=== PATIENT | female | born 1955 | race Caucasian/White ===

== ENCOUNTER 2017-09-27 08:48 | Inpatient (IN) | payer OTHER ==
[2017-09-27] MEDS ORDERED: METOCLOPRAMIDE 10 MG/2 ML VIAL IVP ONE (09:06)
[2017-09-27] MEDS ORDERED: NS 1,000 ML IV ONE (09:10)
[2017-09-27 09:12] LABS: % IMMATURE GRANULYOCYTES 0.2 % (0.0-1.1); ABSOLUTE IMMATURE GRANULOCYTES 0.02 10^3/uL (0.00-0.10); ADD DIFF? NO; ADD MORPH? NO; ADD SCAN? NO; ATYPICAL LYMPHOCYTE FLAG 10 (0-99); FRAGMENT RBC FLAG 0 (0-99); HEMOGLOBIN 16.4 g/dL (12.6-16.3); LEFT SHIFT FLG 0 (0-99); LIPEMIA HEMOLYSIS FLAG 90 (0-99); MEAN CELL HEMOGLOBIN 30.9 pg (27.9-34.1); MEAN CELL HEMOGLOBIN CONCENTR. 34.2 g/dL (32.4-36.7); MEAN CELL VOLUME 90.4 fL (81.5-99.8); MEAN PLATELET VOLUME 9.8 fL (8.7-11.7); PLATELET CLUMPS FLAG 10 (0-99); PLATELET COUNT 252 10^3/uL (150-400); RED BLOOD CELL COUNT 5.31 10^6/uL (4.18-5.33)
--- NOTE | 2017-09-27 09:13 | EDPHY ---
H & P Time Seen by Provider: 09/27/17 08:54 HPI/ROS: CHIEF COMPLAINT: Severe abdominal pain HISTORY OF PRESENT ILLNESS: 62-year-old female presents with severe abdominal pain. She awoke with epigastric pain this morning. The pain has gradually increased and now is severe. The pain waxes and wanes and is associated with nausea and vomiting. No radiation of pain and no alleviating/aggravating factors. No prior similar symptoms. No prior abdominal surgery. REVIEW OF SYSTEMS: Constitutional: No fever, no chills Eyes: No visual changes ENT: No sore throat Respiratory: No cough, no shortness of breath Cardiac: No chest pain Genitourinary: No hematuria, no dysuria Musculoskeletal: No leg pain or swelling Skin: No rash Neurological: No headache, no weakness Psychiatric: No depression Past Medical/Surgical History: Denies Social History: Occasional alcohol Smoking Status: Never smoked Physical Exam: General Appearance: Alert, appears in pain Eyes: Pupils equal and round, no conjunctival pallor or injection ENT, Mouth: Mucous membranes moist Neck: Normal inspection Respiratory: Lungs are clear to auscultation Cardiovascular: Regular rate and rhythm Gastrointestinal: Abdomen is diffusely tender, guarding Neurological: A&O, nonfocal exam Skin: Warm and dry, no rash Extremities: Nontender, no pedal edema Psychiatric: Mood and affect normal Constitutional: Initial Vital Signs Temperature (C) 36.7 C 09/27/17 08:49 Heart Rate 71 09/27/17 08:49 Respiratory Rate 19 09/27/17 08:49 Blood Pressure 176/113 H 09/27/17 08:49 O2 Sat (%) 100 09/27/17 08:49 O2 Delivery Mode Room Air O2 (L/minute) 2 Allergies/Adverse Reactions: No Known Allergies Allergy (Unverified 09/27/17 08:49) Home Medications: Medication Instructions Recorded PARoxetine HCL [Paxil 30mg (*)] 30 mg PO HS 09/27/17 Medical Decision Making - Diagnostics EKG Interpretation: EKG interpreted by me reveals sinus rhythm, rate 79, no ST or T segment changes. Imaging Results: Imaging Impressions Abdomen CT 09/27/17 09:11 Impression: 1. High-grade small bowel obstruction in the right lower quadrant involving two segments of ileum. Etiology is either due to adhesive band or internal hernia. 2. Small volume of free fluid in the right paracolic gutter and pelvis. No abscess or evidence of perforation. 3. Simple 2.8 cm left ovarian cyst. Recommend follow up pelvic sonogram to optimally characterize. Findings discussed with Emergency Department physician, Monica Ellis, on September 27, 2017 at 11:00 a.m. ED Course/Re-evaluation: This patient presents with severe generalized abdominal pain. Concern for peritonitis, given diffuse tenderness with guarding. Reglan and Benadryl IV given. 9:40 a.m.-feels better after IV medications. Abdomen remains diffusely tender with voluntary guarding. Recurrent pain. Morphine and Zofran IV given. 11:30 a.m.-CT scan results discussed with the patient. She just vomited and the pain is returning. NG tube ordered. Morphine and Zofran IV ordered. Consulted Dr. Virginia Beltrán, who will admit the patient. Differential Diagnosis: Differential diagnosis includes though it is not limited to appendicitis, cholecystitis, diverticulitis, pyelonephritis, bowel perforation, small bowel obstruction. - Data Points Laboratory Results: Laboratory Results 09/27/17 09:05 09/27/17 09:05 09/27/17 09/27/17 09:05 09:05 WBC 8.77 10^3/uL 10^3/uL (3.80-9.50) RBC 5.31 10^6/uL 10^6/uL (4.18-5.33) Hgb 16.4 g/dL H g/dL (12.6-16.3) Hct 48.0 % H % (38.0-47.0) MCV 90.4 fL fL (81.5-99.8) MCH 30.9 pg pg (27.9-34.1) MCHC 34.2 g/dL g/dL (32.4-36.7) RDW 13.0 % % (11.5-15.2) Plt Count 252 10^3/uL 10^3/uL (150-400) MPV 9.8 fL fL (8.7-11.7) Neut % (Auto) 71.9 % % (39.3-74.2) Lymph % (Auto) 20.3 % % (15.0-45.0) [place] % (Auto) 6.5 % % (4.5-13.0) Eos % (Auto) 0.6 % % (0.6-7.6) Baso % (Auto) 0.5 % % (0.3-1.7) Nucleat RBC Rel Count 0.0 % % (0.0-0.2) Absolute Neuts (auto) 6.31 10^3/uL 10^3/uL (1.70-6.50) Absolute Lymphs (auto) 1.78 10^3/uL 10^3/uL (1.00-3.00) Absolute Monos (auto) 0.57 10^3/uL 10^3/uL (0.30-0.80) Absolute Eos (auto) 0.05 10^3/uL 10^3/uL (0.03-0.40) Absolute Basos (auto) 0.04 10^3/uL 10^3/uL (0.02-0.10) Absolute Nucleated RBC 0.00 10^3/uL 10^3/uL (0-0.01) Immature Gran % 0.2 % % (0.0-1.1) Immature Gran # 0.02 10^3/uL 10^3/uL (0.00-0.10) Sodium 138 mEq/L mEq/L (134-144) Potassium 4.0 mEq/L mEq/L (3.5-5.2) Chloride 100 mEq/L mEq/L (97-110) Carbon Dioxide 22 mEq/l mEq/l (22-31) Anion Gap 16 mEq/L mEq/L (8-16) BUN 21 mg/dL mg/dL (7-23) Creatinine 0.7 mg/dL mg/dL (0.6-1.0) Estimated GFR > 60 Glucose 145 mg/dL H mg/dL (70-100) Calcium 9.9 mg/dL mg/dL (8.5-10.4) Total Bilirubin 0.5 mg/dL mg/dL (0.1-1.4) Conjugated Bilirubin 0.0 mg/dL mg/dL (0.0-0.5) Unconjugated Bilirubin 0.5 mg/dL mg/dL (0.0-1.1) AST 30 IU/L IU/L (14-46) ALT 42 IU/L IU/L (9-52) Alkaline Phosphatase 80 IU/L IU/L (38-126) Total Protein 7.1 g/dL g/dL (6.3-8.2) Albumin 4.6 g/dL g/dL (3.5-5.0) Lipase 95 IU/L IU/L (23-300) Medications Given: Hydromorphone HCl (Dilaudid) 0.4 - 1 mg IVP Q4 PRN PRN Reason: Pain, Severe Unable to Take PO Stop: 10/07/17 13:04 Last Admin: 09/27/17 14:30 Dose: 0.4 mg Morphine Sulfate (Morphine) 4 mg IVP Q1H PRN PRN Reason: Pain, Severe Unable to Take PO Last Admin: 09/27/17 11:47 Dose: 4 mg Discontinued Medications Diphenhydramine HCl (Benadryl Injection) 25 mg IVP EDNOW ONE Stop: 09/27/17 09:07 Last Admin: 09/27/17 09:13 Dose: 25 mg Sodium Chloride (Ns) 1,000 mls @ 0 mls/hr IV ONCE ONE; Wide Open PRN Reason: Protocol Stop: 09/27/17 09:11 Last Admin: 09/27/17 09:14 Dose: 1,000 mls Metoclopramide HCl (Reglan Injection) 10 mg IVP EDNOW ONE Stop: 09/27/17 09:07 Last Admin: 09/27/17 09:14 Dose: 10 mg Morphine Sulfate (Morphine) 4 mg IVP EDNOW ONE Stop: 09/27/17 10:02 Last Admin: 09/27/17 10:03 Dose: 4 mg Ondansetron HCl (Zofran) 4 mg IVP EDNOW ONE Stop: 09/27/17 11:29 Last Admin: 09/27/17 11:47 Dose: 4 mg Departure - Departure Disposition: [facility] Acute Clinical Impression: Small bowel obstruction Condition: Good
--- NOTE | 2017-09-27 09:34 | CPEKG ---
Heart Rate: 79 RR Interval: 759 P-R Interval: 140 QRSD Interval: 88 QT Interval: 444 QTC Interval: 510 P [place]: 78 QRS [place]: 86 T Wave [place]: 29 EKG Severity - ABNORMAL ECG - EKG Impression: SINUS RHYTHM EKG Impression: LEFT ATRIAL ABNORMALITY EKG Impression: BORDERLINE RIGHT AXIS DEVIATION EKG Impression: BORDERLINE PROLONGED QT INTERVAL Electronically Signed By: Monica Ellis 27-Sep-2017 15:01:36
[2017-09-27 09:39] LABS: ALANINE AMINOTRANSFERASE 42 IU/L (9-52); ALBUMIN 4.6 g/dL (3.5-5.0); ALKALINE PHOSPHATASE 80 IU/L (38-126); ANION GAP 16 mEq/L (8-16); ASPARTATE AMINOTRANSFERASE 30 IU/L (14-46); BILIRUBIN,TOTAL 0.5 mg/dL (0.1-1.4); BILIRUBIN-UNCONJUGATED 0.5 mg/dL (0.0-1.1); CALCIUM 9.9 mg/dL (8.5-10.4); CARBON DIOXIDE 22 mEq/l (22-31); CHLORIDE 100 mEq/L (97-110); CREATININE 0.7 mg/dL (0.6-1.0); GLOMERULAR FILTRATION RATE > 60; GLUCOSE 145 mg/dL (70-100); SODIUM 138 mEq/L (134-144); TOTAL PROTEIN 7.1 g/dL (6.3-8.2)
[2017-09-27] MEDS ORDERED: IOPAMIDOL (ISOVUE-300) 100 ML BTL ONE ×2 (09:47→10:16)
[2017-09-27] MEDS ORDERED: ONDANSETRON 4 MG/2 ML VIAL IVP ONE (11:28)
[2017-09-27] MEDS ORDERED: ONDANSETRON 4 MG/2 ML VIAL IVP PRN (13:05)
[2017-09-27] MEDS: HYDROmorphONE/DILAUDID 1 MG/ML INJ IVP PRN ×4 (14:30→19:39)
--- NOTE | 2017-09-27 19:30 | PDGENHP ---
History & Physical Chief Complaint: CRAMPY ABDOMINAL PAIN AND EMESIS History of Present Illness: 62-YEAR-OLD FEMALE PRESENTS WITH 18 HOURS OF SEVERE ABDOMINAL CRAMPS AND VOMITING. SHE DESCRIBES THE EMESIS BILE-STAINED. SHE HAS HAD NO PREVIOUS ABDOMINAL SURGERY AND NO HERNIAS. SHE KNOWS OF NO SIGNIFICANT ABDOMINAL TRAUMA OR INFLAMMATORY PROCESSES AND NO HISTORY OF COLITIS. SHE HAD A SMALL BOWEL MOVEMENT TODAY AND SHE USUALLY DOES NOT SUFFER FROM CONSTIPATION. ADMITTED AT THIS TIME FOR NG SUCTION AND OBSERVATION Pertinent Past, Social, Family History: PAST HISTORY: NEGATIVE. FAMILY HISTORY : NONCONTRIBUTORY. REVIEW OF SYSTEMS:-10 POINT REVIEW OF SYSTEMS EXCEPT RELATED TO THE HPI. NO KNOWN ALLERGIES. MEDICATIONS ARE PAXIL Relevant Physical Exam: GENERAL: ALERT HEALTHY 62-YEAR-OLD FEMALE WHO IS IN QUITE A BIT OF DISCOMFORT. CHEST CLEAR. COR REGULAR RHYTHM. HEENT: NONICTERIC WITH NO ADENOPATHY AND NO ORAL LESIONS. ABDOMEN SOFT, SLIGHTLY DISTENDED, VERY TENDER IN THE RIGHT MID ABDOMEN WITH BOWEL SOUNDS. NO HERNIAS IDENTIFIED. EXTREMITIES FULL RANGE OF MOTION FULL PULSES. NEURO: PHYSIOLOGIC. SKIN INTACT WITH NO RASHES OR LESIONS Cardiorespiratory Assessment: IMPRESSION: SMALL BOWEL OBSTRUCTION OF UNCERTAIN ETIOLOGY DEMONSTRATED ON CT SCAN. PLAN IS ADMIT FOR OBSERVATION NG SUCTION IV FLUIDS. IF SHE REMAINS IS TENDER SHE WILL NEED A LAPAROTOMY. RISKS AND OPTIONS BEEN FULLY DISCUSSED
--- NOTE | 2017-09-27 19:32 | SOAPPROG ---
SOAP Progress Note Assessment/Plan: Assessment: PATIENT WITH SBO STILL QUITE TENDER REQUIRING LOTS OF DILAUDID/NO EMESIS OR FLATUS/NO FEVER BECAUSE OF THE PERSISTENT TENDERNESS AND REQUIREMENTS FOR PAIN MEDICINE I RECOMMENDED SHE PROCEED WITH LAPAROSCOPY AND/OR LAPAROTOMY FOR RESOLUTION Plan: SURGERY/RISKS AND OPTIONS FULLY DISCUSSED AND SHE WISHES TO PROCEED 09/27/17 19:31 Objective: Vital Signs Temp Pulse Resp BP Pulse Ox 36.6 C 87 16 131/85 H 98 09/27/17 19:18 09/27/17 19:18 09/27/17 19:18 09/27/17 19:18 09/27/17 19:18 09/26/17 09/27/17 09/28/17 05:59 05:59 05:59 Intake Total 730 Output Total 500 Balance 230 ICD10 Worksheet Patient Problems: Problems Problem Status Onset Small bowel obstruction Acute
[2017-09-27] MEDS ORDERED: HEPARIN 1000 UNIT/1 ML MDV ONE (20:34)
[2017-09-27] MEDS ORDERED: BUPIVACAINE 0.5% 30 ML SDV ONE (20:34)
[2017-09-27] MEDS ORDERED: THROMBIN(HUM PLAS)/FIBRINOG/CA 5 ML VIAL TP ONE (20:35)
[2017-09-27] MEDS ORDERED: ceFAZolin 1 GM/5 ML SYR ONE (20:35)
[2017-09-27] MEDS ORDERED: fentaNYL 100 MCG/2 ML INJ ONE ×3 (20:36→23:18)
[2017-09-27] MEDS ORDERED: fentaNYL 100 MCG/2 ML INJ IV ONE ×2 (20:45→21:00)
--- NOTE | 2017-09-27 21:28 | PDANEPAE ---
ANE History of Present Illness here for laparoscopy for SBO ANE Past Medical History - Pulmonary History Hx Oxygen in Use at Home: No Hx Sleep Apnea: No Sleep Apnea Screening Result - Last Documented: Negative - Endocrine History Hx Diabetes: No ANE Review of Systems Review of Systems: ANE Patient History - Allergies Allergies/Adverse Reactions: No Known Allergies Allergy (Unverified 09/27/17 08:49) - Home Medications Home Medications: PARoxetine HCL [Paxil 30mg (*)] 30 mg PO HS 09/27/17 [Last Taken 09/26/17] - Smoking Hx Smoking Status: Never smoked ANE Labs/Vital Signs - Labs Result Diagrams: 09/27/17 09:05 09/27/17 09:05 - Vital Signs Blood Pressure: 131/85 Heart Rate: 71 Respiratory Rate: 16 O2 Sat (%): 98 Height: 162.56 cm Weight: 52.163 kg
[2017-09-27] MEDS ORDERED: PROPOFOL 200 MG/20 ML VIAL ONE (21:39)
[2017-09-27] MEDS ORDERED: ERTAPENEM 1 GM in NS 100 ML IV ONE (23:00)
--- NOTE | 2017-09-27 23:42 | POSTOPPROG ---
Post Op Note Date of Operation: 09/27/17 Surgeon: David Beltrán Anesthesiologist: CHAO Anesthesia: GET(General Endotracheal) Pre-op Diagnosis: SBO Post-op Diagnosis: VOLVULUS WITH INFARCTED SMALL BOWELL Indication: PAIN Procedure: LAPAROSCOPY, LAPAROTOMY AND SMALL BOWELL RESECTION AND APPE Findings: >1/2 OF SMALL BOWELL TRAPPED IN INTERNAL HERNIA AND VOLVULUS AND INFARCTED Inf/Abcess present in the surg proc area at time of surgery?: Yes Depth: Organ Space EBL: Minimal Complications: 0 Specimen(s): 10-12 FEET OF SMALL BOWELL AND APPENDIX
[2017-09-27] MEDS ORDERED: HYDROmorphONE/DILAUDID 6 MG/30 ML PCA IV PRN (23:47)
[2017-09-27] MEDS ORDERED: NALOXONE HCL 0.4 MG/ML INJ IVP PRN (23:47)
--- NOTE | 2017-09-27 23:48 | POSTANESTH ---
Post Anesthetic Evaluation Cardiovascular Status: Normal, Stable Respiratory Status: Normal, Stable Level of Consciousness/Mental Status: Moderately Sleepy Pain Control: Adequate, Prn Tx Ordered Nausea/Vomiting Control: Adequate, Prn Tx Ordered Complications Possibly Related to Anesthesia: None Noted
[2017-09-28] MEDS ORDERED: NALOXONE HCL 0.4 MG/ML INJ IVP PRN ×2 (00:02→15:31)
[2017-09-28] MEDS ORDERED: LABETALOL HCL 50 MG/10 ML SYR IVP PRN (00:02)
[2017-09-28] MEDS ORDERED: LABETALOL HCL 5 MG/ML 20 ML MDV ONE (00:06)
[2017-09-28] MEDS: KETOROLAC 15 MG/1 ML SDV IVP SCH ×5 (01:08→23:42)
[2017-09-28] MEDS: HYDROmorphONE/DILAUDID 1 MG/ML INJ IVP PRN ×2 (02:20→21:24)
[2017-09-28 05:10] LABS: % IMMATURE GRANULYOCYTES 0.6 % (0.0-1.1); ABSOLUTE IMMATURE GRANULOCYTES 0.11 10^3/uL (0.00-0.10); ADD DIFF? NO; ADD MORPH? NO; ADD SCAN? NO; ATYPICAL LYMPHOCYTE FLAG 0 (0-99); FRAGMENT RBC FLAG 0 (0-99); HEMATOCRIT 48.8 % (38.0-47.0); HEMOGLOBIN 15.8 g/dL (12.6-16.3); LEFT SHIFT FLG 10 (0-99); LIPEMIA HEMOLYSIS FLAG 80 (0-99); MEAN CELL HEMOGLOBIN 30.6 pg (27.9-34.1); MEAN CELL HEMOGLOBIN CONCENTR. 32.4 g/dL (32.4-36.7); MEAN CELL VOLUME 94.4 fL (81.5-99.8); MEAN PLATELET VOLUME 10.3 fL (8.7-11.7); PLATELET CLUMPS FLAG 20 (0-99); PLATELET COUNT 219 10^3/uL (150-400); RED BLOOD CELL COUNT 5.17 10^6/uL (4.18-5.33); RED CELL DISTRIBUTION WIDTH 13.2 % (11.5-15.2)
[2017-09-28 05:25] LABS: AMYLASE 67 IU/L (30-110)
[2017-09-28] MEDS ORDERED: ERTAPENEM 1 GM in NS 100 ML IV SCH (09:00)
[2017-09-28] MEDS: D5W 1/2 NS W/ 20 KCl/L 1,000 ML IV SCH ×2 (12:22→23:42)
[2017-09-28] MEDS ORDERED: BUPIVACAINE 0.5% 30 ML SDV ONE (12:49)
[2017-09-28] MEDS ORDERED: NS 1,000 ML IV ONE (13:54)
--- NOTE | 2017-09-28 14:18 | PDANEPAE ---
ANE History of Present Illness Patient presents for Ex Lap. ANE Past Medical History - Pulmonary History Hx Oxygen in Use at Home: No Hx Sleep Apnea: No Sleep Apnea Screening Result - Last Documented: Negative - Endocrine History Hx Diabetes: No ANE Review of Systems Review of Systems: ANE Patient History - Allergies Allergies/Adverse Reactions: No Known Allergies Allergy (Unverified 09/27/17 08:49) - Home Medications Home medications: home medication list seen and reviewed Home Medications: PARoxetine HCL [Paxil 30mg (*)] 30 mg PO HS 09/27/17 [Last Taken 09/26/17] - NPO status NPO Status: no food or drink >8 hours NPO Since - Liquids (Date): 09/26/17 NPO Since - Solids (Date): 09/26/17 - Anes Hx Anes Hx: no prior problems - Smoking Hx Smoking Status: Never smoked ANE Labs/Vital Signs - Labs Result Diagrams: 09/28/17 04:47 09/27/17 09:05 - Vital Signs Blood Pressure: 108/66 Heart Rate: 82 Respiratory Rate: 16 O2 Sat (%): 96 Height: 162.56 cm Weight: 52.163 kg ANE Physical Exam - Airway Neck exam: FROM, short neck Mallampati Score: Class 2 Mouth exam: normal dental/mouth exam - Pulmonary Pulmonary: no respiratory distress - Cardiovascular Cardiovascular: regular rate and rhythym - ASA Status ASA Status: II ANE Anesthesia Plan Anesthesia Plan: general endotracheal anesthesia (rba discussed)
[2017-09-28] MEDS ORDERED: fentaNYL 100 MCG/2 ML INJ ONE ×2 (14:35→15:33)
[2017-09-28] MEDS ORDERED: PROPOFOL 200 MG/20 ML VIAL ONE (14:35)
[2017-09-28] MEDS ORDERED: LIDOCAINE 2% 5 ML SDV ONE (14:36)
[2017-09-28] MEDS ORDERED: ROCURONIUM 50 MG/5 ML VIAL ONE (15:08)
[2017-09-28] MEDS ORDERED: ALBUMIN 5% 250 ML BOTTLE IV ONE (15:11)
[2017-09-28] MEDS ORDERED: ONDANSETRON 4 MG/2 ML VIAL ONE (15:21)
[2017-09-28] MEDS ORDERED: SUGAMMADEX SODIUM 200 MG/2 ML VIAL IVP ONE (15:21)
[2017-09-28] MEDS ORDERED: DEXAMETHASONE 4 MG/ML VIAL ONE (15:21)
[2017-09-28] MEDS ORDERED: fentaNYL 100 MCG/2 ML INJ IVP PRN (15:31)
[2017-09-28] MEDS ORDERED: LR 500 ML IV PRN (15:31)
[2017-09-28] MEDS ORDERED: ONDANSETRON 4 MG/2 ML VIAL IVP PRN (15:31)
--- NOTE | 2017-09-28 15:41 | ASMTCASEMG ---
Living Arrangements What is your living Answers: With Spouse arrangement? Who do you live with? Type Of Residence What kind of residence do Answers: House you live in? Discharge Plan Comments Coordination Status Comments Notes: Patient is a 62yo female who was admitted for severe abdominal pain and emesis. Patient is going for a right small bowel lap to determine if any obstruction is present. Patient is and lives independently in [place]. No services have been ordered currently. Patient will likely d/c independently. CM available if d/c needs arise. Date Signed: 09/28/2017 03:40 PM Electronically Signed By:Estelita Pace LCSW
--- NOTE | 2017-09-28 15:41 | POSTOPPROG ---
Post Op Note Date of Operation: 09/28/17 Surgeon: David Beltrán Deputy Brand Inspector: Nidhi Hassan Anesthesiologist: Gene Lucas Anesthesia: GET(General Endotracheal) Pre-op Diagnosis: s/p SBO and SBR Post-op Diagnosis: same, viable bowel Indication: 62 Y F s/p SBO c SBR brought back to OR for 2nd look. Procedure: exlaparotomy c abdominal washout Findings: viable bowel and patent healthy anastomosis Inf/Abcess present in the surg proc area at time of surgery?: No EBL: Minimal Complications: none
--- NOTE | 2017-09-28 15:51 | POSTANESTH ---
Post Anesthetic Evaluation Cardiovascular Status: Similar to Pre-Op Cond Respiratory Status: Similar to Pre-op Cond. Level of Consciousness/Mental Status: Can Participate in Eval Pain Control: Adequate, Prn Tx Ordered Nausea/Vomiting Control: Adequate, Prn Tx Ordered Complications Possibly Related to Anesthesia: None Noted
[2017-09-28] MEDS: ERTAPENEM 1 GM in NS 100 ML IV SCH (21:25)
[2017-09-29] MEDS: KETOROLAC 15 MG/1 ML SDV IVP SCH ×4 (05:26→23:31)
[2017-09-29] MEDS: D5W 1/2 NS W/ 20 KCl/L 1,000 ML IV SCH ×4 (05:28→22:35)
[2017-09-29] MEDS: HYDROmorphONE/DILAUDID 1 MG/ML INJ IVP PRN ×3 (07:25→19:43)
--- NOTE | 2017-09-29 09:52 | SOAPPROG ---
SOAP Progress Note Assessment/Plan: Assessment/Plan: 62 Y F s/p laparotomy x 2 c SBR for SBO c ischemic bowel. Doing very well this am. Pain controlled. Getting ready to get OOB. Continue NGT until better bowel function. Ok to have ice chips. Ok to shower if desired--will need help. Continue routine post op care. S: No complaints. Using IS. Motivated to heal. O: alert, nad mmm no jaundice no wob rrr abd soft, +hypoactive BS, inc cdi 09/29/17 09:49 Objective: Vital Signs Temp Pulse Resp BP Pulse Ox 37.4 C 85 14 123/68 H 96 09/29/17 09:17 09/29/17 09:17 09/29/17 09:17 09/29/17 09:17 09/29/17 09:17 Laboratory Results 09/28/17 04:47 09/28/17 09/29/17 09/30/17 05:59 05:59 05:59 Intake Total 1230 1450 1989 Output Total 946 2024 Balance 480 -575 1989 ICD10 Worksheet Patient Problems: Problems Problem Status Onset Small bowel obstruction Acute
[2017-09-29] MEDS: ERTAPENEM 1 GM in NS 100 ML IV SCH (19:50)
[2017-09-30] MEDS: HYDROmorphONE/DILAUDID 1 MG/ML INJ IVP PRN ×5 (02:13→20:18)
[2017-09-30] MEDS: D5W 1/2 NS W/ 20 KCl/L 1,000 ML IV SCH ×3 (04:22→19:08)
[2017-09-30] MEDS: KETOROLAC 15 MG/1 ML SDV IVP SCH ×4 (05:42→23:58)
--- NOTE | 2017-09-30 09:19 | SOAPPROG ---
SOAP Progress Note Assessment/Plan: Assessment: PATIENT WITH SBO STILL QUITE TENDER REQUIRING LOTS OF DILAUDID/NO EMESIS OR FLATUS/NO FEVER BECAUSE OF THE PERSISTENT TENDERNESS AND REQUIREMENTS FOR PAIN MEDICINE I RECOMMENDED SHE PROCEED WITH LAPAROSCOPY AND/OR LAPAROTOMY FOR RESOLUTION Plan: SURGERY/RISKS AND OPTIONS FULLY DISCUSSED AND SHE WISHES TO PROCEED 09/27/17 19:31 09/30/17 09:18 ABD SOFT/ WOUND OK/ AFEBRILE/ MINIMAL NG OUT/ +BS, -FLATUS/ IMPROVING/ PATH BENIGN Objective: Vital Signs Temp Pulse Resp BP Pulse Ox 36.8 C 76 18 147/78 H 99 09/30/17 07:30 09/30/17 07:30 09/30/17 07:30 09/30/17 07:30 09/30/17 07:30 Laboratory Results 09/28/17 04:47 09/29/17 09/30/17 10/01/17 05:59 05:59 05:59 Intake Total 1450 4236 Output Total 7 1550 Balance -575 1086 ICD10 Worksheet Patient Problems: Problems Problem Status Onset Small bowel obstruction Acute
[2017-09-30] MEDS: ERTAPENEM 1 GM in NS 100 ML IV SCH (20:18)
[2017-10-01] MEDS: HYDROmorphONE/DILAUDID 1 MG/ML INJ IVP PRN ×3 (02:02→16:41)
[2017-10-01] MEDS: KETOROLAC 15 MG/1 ML SDV IVP SCH ×3 (05:23→18:14)
[2017-10-01] MEDS ORDERED: ENALAPRILAT DIHYDRATE 1.25 MG/ML VIAL IVP PRN (13:16)
--- NOTE | 2017-10-01 15:29 | SOAPPROG ---
SOAP Progress Note Assessment/Plan: Assessment: 62-year-old female status post small bowel resection, volvulus. Hypertension. Pain well controlled, not passing any gas although feels there is more bowel sounds today Physical exam NG tube in place, comfortable Chest CTA bilaterally Abdomen soft nontender well-healing incision no surrounding erythema Plan: Patient started on vasotec by Dr. Beltrán for hypertension, continue to monitor. We will evaluate patient later today for possible NG tube removal although will be cautious regarding when to take it out. Awaiting further bowel function, likely discharged in 2-3 days. 10/01/17 15:27 Objective: Vital Signs Temp Pulse Resp BP Pulse Ox 37.1 C 84 16 152/88 H 93 10/01/17 12:00 10/01/17 12:00 10/01/17 12:00 10/01/17 14:25 10/01/17 12:00 Laboratory Results 09/28/17 04:47 09/30/17 10/01/17 10/02/17 05:59 05:59 05:59 Intake Total 5257 2754 Output Total 9044 4130 Balance 1086 -166 ICD10 Worksheet Patient Problems: Problems Problem Status Onset Small bowel obstruction Acute
--- NOTE | 2017-10-01 15:56 | ASMTCMCOM ---
CM Note CM Note Notes: Plan remains the same, pt will dc home with support of when medically stable. CM available for any changes. Date Signed: 10/01/2017 03:55 PM Electronically Signed By:Lyn Monroy RN
[2017-10-01] MEDS: ERTAPENEM 1 GM in NS 100 ML IV SCH (20:22)
[2017-10-02] MEDS: KETOROLAC 15 MG/1 ML SDV IVP SCH ×5 (00:09→23:55)
[2017-10-02 07:23] VITALS: RESP 16
[2017-10-02] MEDS ORDERED: OXYCODONE/APAP 5/325 TAB PO PRN (08:03)
--- NOTE | 2017-10-02 08:05 | SOAPPROG ---
SOAP Progress Note Assessment/Plan: Assessment/Plan: 62 Y F s/p laparotomy x 2 c SBR for SBO c ischemic bowel. D/c NGT. Light diet. Oral pain meds. Continue IV abx. Seen and examined with Dr. Miller. Dispo: home tomorrow if does well S: Pain controlled. Passing gas. NGT clamped about 24 hours. No N/V. Tolerating clears. O: alert, nad mmm no jaundice ctab anteriorly rrr abd soft, +BS, inc cdi 10/02/17 08:05 Objective: Vital Signs Temp Pulse Resp BP Pulse Ox 36.8 C 95 16 153/104 H 98 10/02/17 07:19 10/02/17 07:19 10/02/17 07:19 10/02/17 07:19 10/02/17 07:19 Laboratory Results 09/28/17 04:47 10/01/17 10/02/17 10/03/17 05:59 05:59 05:59 Intake Total 4888 472 Output Total 4785 1250 Balance -166 -1250 472 ICD10 Worksheet Patient Problems: Problems Problem Status Onset Small bowel obstruction Acute
[2017-10-02] MEDS: ERTAPENEM 1 GM in NS 100 ML IV SCH (20:50)
[2017-10-03 07:30] VITALS: BP 133/77; PULSE 86; TEMP 98.1; O2SAT 97
--- NOTE | 2017-10-03 07:57 | SOAPPROG ---
SOAP Progress Note Assessment/Plan: Assessment/Plan: 62 Y F s/p laparotomy x 2 c SBR for SBO c ischemic bowel. Doing great. D/c to home today. S: Pain controlled. Passing gas. Slept well. Tolerating diet. O: alert, nad mmm no jaundice ctab anteriorly rrr abd soft, +BS, inc cdi 10/03/17 07:57 Objective: Vital Signs Temp Pulse Resp BP Pulse Ox 36.7 C 86 16 133/77 H 97 10/03/17 07:26 10/03/17 07:26 10/03/17 07:26 10/03/17 07:26 10/03/17 07:26 Laboratory Results 09/28/17 04:47 10/02/17 10/03/17 10/04/17 05:59 05:59 05:59 Intake Total 472 Output Total 1250 200 Balance -1250 272 ICD10 Worksheet Patient Problems: Problems Problem Status Onset Small bowel obstruction Acute
--- NOTE | 2017-10-03 09:26 | GDS ---
[f rep st] DISCHARGE SUMMARY DISCHARGE DIAGNOSES: 1. High-grade small bowel obstruction. 2. Volvulus with infarcted small bowel. 3. Postoperative ileus. PROCEDURES: 1. Laparoscopy with laparotomy and small bowel resection with appendectomy. 2. Exploratory laparotomy. INTRAOPERATIVE FINDINGS: The patient was initially found to have about half of her small bowel [place] ed in an internal hernia with a volvulus. There was infarcted small bowel present. About 10-12 feet of small bowel, including her appendix, was removed. The patient was brought back to the operating room for a second look and was found to have very healthy, pink, well-perfused bowel, no sign of infe ction, and an intact patent anastomosis. HOSPITAL COURSE: The patient is a 62-year-old female, who came in through the emergency department w ith complaints of severe abdominal pain with vomiting. A CT scan of the abdomen and pelvis showed a high-grade small bowel obstruction in the right lower quadrant with small volume of free fluid in the pericolic gutters and pelvis. She was admitted and brought to the operating room by Dr. Beltrán. She was found to have an internal hernia with a volvulus and infarcted small bowel as described above. The procedure was uncomplicated. She tolerated it well. [facility] She was brought back to the operating room the next day for a second look. Her bowel was healthy and the procedure was quick and uncomplicated. The patient's postoperative course at that point was relatively uneventful. She had a nasogastric tu be in and did have a postoperative ileus. Eventually, her bowels woke up, she began to pass gas. He r NG tube was clamped for 24 hours and she trialed clears, which she did well with. Her NG tube was removed and she was started on a light diet. Her pain was well controlled. She was kept on IV antib iotics during her hospital stay. DISCHARGE INSTRUCTIONS: The patient was discharged to home in stable condition with plans for outpat ient followup. All limitations were discussed prior to her leaving. She was given a prescription fo r ibuprofen and Percocet. /[id number]/MODL
--- NOTE | 2017-10-03 14:42 | ASDISCHSUM ---
Discharge Information Plan Status:Home with No Needs Medically Cleared to Leave: Discharge Date:10/03/2017 09:50 AM CM D/C Disposition:Home, Routine, Self-Care ADT D/C Disposition:Home, Routine, Self-Care Projected Discharge Date:10/03/2017 09:50 AM Transportation at D/C: Discharge Delay Reason: Follow-Up Date:10/03/2017 09:50 AM Discharge Slot: Final Diagnosis: Placement Information Patient Contact Information Contact Name:CRISTINAPRINCESSJUNIORCEASAR Relationship: Address:[address] Work Phone: City:[facility] Phone: [facility]/Zip Code:[place] [address] Email: Financial Information Financial Class:[employer] Primary Plan Desc:JAYLA RODRIGUEZ Primary Plan Number:[id number] Secondary Plan Desc: Secondary Plan Number: Assessment Information [facility] Initial CM Assessment Living Arrangements What is your living Answers: With Spouse arrangement? Who do you live with? Type Of Residence What kind of residence do Answers: House you live in? Discharge Plan Comments Coordination Status Comments Notes: Patient is a 62yo female who was admitted for severe abdominal pain and emesis. Patient is going for a right small bowel lap to determine if any obstruction is present. Patient is and lives independently in [place]. No services have been ordered currently. Patient will likely d/c independently. CM available if d/c needs arise. Date Signed: 09/28/2017 03:40 PM Electronically Signed By:Estelita Pace LCSW [facility] CM Progress Note CM Note CM Note Notes: Plan remains the same, pt will dc home with support of when medically stable. CM available for any changes. Date Signed: 10/01/2017 03:55 PM Electronically Signed By:Lyn Monroy RN Intervention Information
--- NOTE | 2017-10-11 05:44 | GOP ---
[f rep st] OPERATIVE REPORT DATE OF OPERATION: 09/27/2017 SURGEON: David Beltrán MD PREOPERATIVE DIAGNOSIS: Small bowel obstruction. POSTOPERATIVE DIAGNOSIS: Small bowel volvulus with internal hernia. 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 Proximal 8-9 feet of bowel was viable, but the infarction extended from that point nearly to the ileocecal valve. DESCRIPTION OF PROCEDURE: The patient was taken to the operating room where she received satisfactory general endotracheal anesthesia. She was placed in the supine position. A short incision was made in the left upper quadrant. A Veress needle inserted. Pneumoperitoneum was established. Trocar introduced. Laparoscope introduced. Good visualization was obtained. It was immediately apparent that she had a large amount of small bowel. The procedure was converted to a midline abdominal incision. The abdomen was opened and carefully entered through the linea alba and the peritoneum. The small bowel was eviscerated. A small adhesive band was identified. This was divided with the Harmonic scalpel, freeing up the small bowel so it could be further and completely eviscerated. The bowel was divided within 3 inches of the ileocecal valve with a DIANE stapler. The proximal bowel was also divided with DIANE stapler. The mesentery of the infarcted bowel was divided sharply with scissors and did not bleed. The remaining portion was divided with the Harmonic scalpel, and approximately 8-9 feet of small bowel were removed. Hemostasis was secured and assured. The end-to-end anastomosis was then done with the proximal small bowel to the terminal ileum. This was done in a 2- layer fashion with 3-0 silk inverting sutures for the anterior and posterior layers, and a running inner layer of 3-0 Vicryl creating a 2 fingerbreadth anastomosis. Mesentery between the two was closed with a running 3-0 Vicryl suture. The bowel appeared to be viable at completion of the surgery. Using the Doppler, there was good Doppler flow in the mesentery and in the antimesenteric border of the small bowel. The wound was irrigated. Hemostasis was assured. No other significant abnormalities were encountered. The abdomen was then closed with a running #1 PDS suture, and skin jerod for the skin. Wound was infiltrated with 0.5% Marcaine. PLAN: Would be to come back in 24 hours for a second-look procedure. It should be noted that there was good pulsation in the superior mesenteric artery , and no other etiology for the infarction, other than the volvulus. /[id number]/MODL MTDD
--- NOTE | 2017-10-11 13:21 | GOP ---
[f rep st] OPERATIVE REPORT DATE OF OPERATION: 09/28/2017 SURGEON: David Beltrán MD SOFTWARE VALIDATION ENGINEER: Nidhi Hassan, CASTILLO. ANESTHESIOLOGIST: Dr. Lucas. PREOPERATIVE DIAGNOSIS: 1. 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 2. Internal hernia. POSTOPERATIVE DIAGNOSIS: 1. 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 2. Internal hernia. PROCEDURE PERFORMED: 1. Exploratory laparotomy with second-look procedure. 2. Abdominal washout. FINDINGS: Patient was found to have viable bowel with a patent healthy anastomosis and no other sign s of any ischemic bowel. ESTIMATED BLOOD LOSS: Negligible. DESCRIPTION OF PROCEDURE: Patient was taken to the operating room where she received satisfactory ge neral endotracheal anesthesia by Dr. Lucas. She was placed in supine position, prepped and draped in usual sterile fashion. A midline abdominal incision was opened through the previous scar. Fascia w as opened. Abdomen was explored. There was no significant odor or significant amount of free fluid in the abdomen. Wound was irrigated. The small bowel was eviscerated. All appeared to be intact an d functioning well, and anastomosis appeared to be intact, viable, and patent. Wound was irrigated a nd then closed using a running #1 PDS for the linea alba, a running 3-0 Vicryl suture for the subcuta neous tissue, and 3-0 Monoderm Quill suture for the skin. Wound was all infiltrated with Marcaine. She tolerated procedure well. COMPLICATIONS: None. /[id number]/MODL
--- NOTE | 2017-10-11 21:12 | GOP ---
[f rep st] OPERATIVE REPORT DATE OF OPERATION: 09/28/2017 SURGEON: David Beltrán MD PREOPERATIVE DIAGNOSIS: Small bowel infarction, second-look procedure. POSTOPERATIVE DIAGNOSIS: Small bowel infarction, second-look procedure. PROCEDURE PERFORMED: Exploratory laparotomy with abdominal washout and abdominal wound closure. FINDINGS: Patient was found to have a viable bowel with no evidence of any residual ischemia and a w idely patent anastomosis. DESCRIPTION OF PROCEDURE: Patient was taken to the operating room where she received satisfactory ge neral endotracheal anesthesia. She was placed in supine position, prepped and draped in the usual st erile fashion. A midline abdominal incision was made and carried through the abdomen. The abdomen w as entered. The wound was irrigated. The small bowel was eviscerated. The anastomosis appeared to be viable and patent and the remainder of the bowel was well vascularized and normal in appearance. This was all returned to the abdomen, which was then irrigated and then closed with a running #1 PDS suture for the linea alba, 3-0 Vicryl for the subcu and 3-0 Monoderm Quill suture for the skin. Woun d was infiltrated with 0.5% Marcaine. There were no complications. Tolerated the procedure well, [facility] recovery room in good condition. /[id number]/MODL
== END 2017-10-03 09:50 | disposition home or self-care (01) | DRG 356 ==
LOC: F3E 12:45
PROVIDERS: ADMIT Surgery; ATTEND Surgery
PROC: 0DBB4ZX Excision of Ileum, Percutaneous Endoscopic Approach, Diagnostic (ICD-10-PCS; principal; 2017-09-27 21:30)
PROC: 0DJW0ZZ Inspection of Peritoneum, Open Approach (ICD-10-PCS; 2017-09-28)
DX: K46.1 Unspecified abdominal hernia with gangrene (principal); K56.2 Volvulus; K56.51 Intestinal adhesions [bands], with partial obstruction; K55.029 Acute infarction of small intestine, extent unspecified; K91.89 Other postprocedural complications and disorders of digestive system; N83.202 Unspecified ovarian cyst, left side
CPT/HCPCS: 96374; J1100; J1170; J1200; J1335; J1885; J2405; J2704; J2765; J3010; J3490; P9041; Q9967

== ENCOUNTER → 2017-11-26 | Outpatient (CLI) | payer OTHER | LOC: FIMAGING 12:23 | PROVIDERS: ATTEND Internal Medicine | DX: Z12.31 Encounter for screening mammogram for malignant neoplasm of breast (principal); Z13.820 Encounter for screening for osteoporosis; M85.89 Other specified disorders of bone density and structure, multiple sites; Z78.0 Asymptomatic menopausal state ==